=== PATIENT | female | born 1985 | race Caucasian/White ===

== ENCOUNTER 2018-03-13 10:14 | Emergency (ER) | payer BC ==
[~2018-03-13 10:14] MED LIST: ANUSOL-HC SUPPO25 MG RC; LANOLIN OIL1 OIL; MOTRIN 800800 MG/TAB PO; NO HOME MEDICATIONS; PERCOCET 325 MG1 TA2 PO; PRENATAL VITAMI1 TA5 PO; PRENATAL1 TA1
[2018-03-13 10:25] VITALS: BP 101/64; PULSE 69; TEMP 98
[2018-03-13 10:47] LABS: BASO % 0.3 % (0.0-2.0); EOS # 0.1 (0.0-0.7); EOS % 0.9 % (0-4.0); GRAN # 4.1 (1.4-6.5); HEMATOCRIT 38.4 % (37.0-47.0); HEMOGLOBIN 13.1 g/dl (12.5-16.0); LYMPH # 1.8 (1.2-3.4); LYMPH % 27.9 % (20.0-51.0); MEAN CELL VOLUME 87 fl (80.0-100.0); MEAN CORPUSCULAR HEMOGLOBIN 30 pg (27.0-31.0); MEAN CORPUSCULAR HGB CONC 34 g/dl (33.0-37.0); MEAN PLATELET VOLUME 11.6 fl (7.4-10.4); MONO # 0.4 (0.1-0.6); MONO % 6.6 % (1.7-9.3); PLATELET COUNT 158 K/mm3 (130-400); RED BLOOD COUNT 4.41 M/mm3 (4.10-5.30); REDCELL DISTRIBUTION WIDTH-CV 12.1 % (11.5-14.5)
[2018-03-13 11:02] LABS: BILIRUBIN,TOTAL 0.6 mg/dL (0.0-1.0); CALCIUM 9.2 mg/dL (8.4-10.2); CREATININE, serum 0.65 mg/dL (0.52-1.25); POTASSIUM 3.9 mmol/L (3.4-5.0); TOTAL PROTEIN 7.5 gm/dL (6.4-8.2)
== END 2018-03-13 12:35 | disposition home or self-care (01) ==
LOC: COL.ER 10:14
PROVIDERS: Physician Assistant Medical
DX: O20.0 Threatened abortion (principal)

== ENCOUNTER → 2018-11-28 | Outpatient (CLI) | payer BC | LOC: MC.RAD 13:59 | DX: R59.0 Localized enlarged lymph nodes (principal); R23.4 Changes in skin texture ==